=== PATIENT | female | born 1985 | race African-American/Black ===

== ENCOUNTER 2017-02-02 14:50 | Emergency (ER) | payer MEDICAID, OTHER ==
[~2017-02-02 14:50] MED LIST: Z.0.NO CURRENT MEDS
[2017-02-02 14:51] VITALS: BP 172/102; PULSE 93; RESP 22; TEMP 98.6; O2SAT 98
[2017-02-02] MEDS ORDERED: SODIUM CHLORIDE 0.9% FLUSH 10 ML FLUSH IVF PRN (16:00)
[2017-02-02 16:19] LABS: AUTOMATED NEUTROPHIL # 5.1 TH/MM3 (1.8-7.7); BASOPHIL # 0.1 TH/MM3 (0-0.2); BASOPHIL % 0.6 % (0.0-2.0); EOSINOPHIL # 0.1 TH/MM3 (0-0.4); EOSINOPHIL % 1.4 % (0.0-4.0); HEMATOCRIT 35.9 % (35.0-46.0); HEMO FLAGS DIFF FINAL; LYMPH % 32.3 % (9.0-44.0); LYMPHOCYTE # 2.9 TH/MM3 (1.0-4.8); MEAN CELL VOLUME 91.5 FL (80.0-100.0); MEAN CORPUSCULAR HEMOGLOBIN 30.8 PG (27.0-34.0); MEAN CORPUSCULAR HGB CONC 33.7 % (32.0-36.0); MONO % 8.1 % (0.0-8.0); NEUT % 57.6 % (16.0-70.0); PLATELET COUNT 291 TH/MM3 (150-450); RED BLOOD COUNT 3.92 MIL/MM3 (4.00-5.30); RED CELL DISTRIBUTION WIDTH 13.3 % (11.6-17.2); WHITE BLOOD COUNT 8.9 TH/MM3 (4.0-11.0)
--- NOTE | 2017-02-02 16:24 | PD ---
HPI Chief Complaint: [employer] Problem/Complaint Time Seen by Provider: 14:59 Travel History International Travel<30 days: No Contact w/Intl Traveler<30days: No Traveled to known affect area: No History of Present Illness HPI Patient is a 31-year-old female presenting to emergency department for evaluation of abnormal vaginal bleeding. Patient states it's been ongoing for the last 2 months, she will bleed for 2 days, it will return in a week later and she will bleed for 5-6 days and then it'll go away again. For the last 2 days she's had increased bleeding, she reports passing large clots and has some suprapubic tenderness. She denies any dysuria, shortness of breath, abdominal pain. She states that she does feel tired at times. Patient is not been evaluated for this prior to today. She reports a history of a tubal ligation and states prior to 2 months ago she has not had a period in 6 years. FOR[facility]LY [facility] Past Medical History Medical History: Denies Significant Hx Diminished Hearing: No ?: Not : 4 Para: 3 : 1 Tubal Ligation: Yes Past Surgical History Section: Yes (3) Cholecystectomy: Yes Other Surgery: Yes (3 C SECTIONS) Social History Alcohol Use: No Tobacco Use: No Substance Use: No Allergies-Medications (Allergen,Severity, Reaction): Coded Allergies: No Known Allergies (Verified , 06/07/11) Reported Meds & Prescriptions Reported Meds & Active Scripts Active Reported No Current Meds (Miscellaneous Medication) Misc Review of Systems Except as stated in HPI: all other systems reviewed are Neg Genitourinary: Positive: Pelvic Pain (CRAMPING), Vaginal Bleeding Physical Exam Narrative GENERAL: Obese, well-developed, alert female. Resting comfortably in no acute distress. SKIN: Warm and dry. HEAD: Atraumatic. Normocephalic. EYES: Pupils equal and round. No scleral icterus. No injection or drainage. ENT: No nasal bleeding or discharge. Mucous membranes pink and moist. NECK: Trachea midline. No JVD. CARDIOVASCULAR: Regular rate and rhythm. RESPIRATORY: No accessory muscle use. Clear to auscultation. Breath sounds equal bilaterally. GASTROINTESTINAL: Abdomen soft, mildly tender to palpation in suprapubic region , nondistended. Hepatic and splenic margins not palpable. Positive bowel sounds , no rebound, no guarding GENITOURINARY: Normal external genitalia without lesions or erythema. Vaginal vault with moderate amount of blood, small clots noted. Cervical os was closed. No cervical motion tenderness. Uterus nontender and nonenlarged. Bilateral adnexa nontender without masses. MUSCULOSKELETAL: Extremities without clubbing, cyanosis, or edema. No obvious deformities. NEUROLOGICAL: Awake and alert. No obvious cranial nerve deficits. Motor grossly within normal limits. Five out of 5 muscle strength in the arms and legs. Normal speech. PSYCHIATRIC: Appropriate mood and affect; insight and judgment normal. Data Data Last Documented VS Vital Signs Date Time Temp Pulse Resp B/P (MAP) Pulse Ox O2 Delivery O2 Flow Rate FiO2 02/02/17 17:53 02/02/17 15:16 16 02/02/17 14:51 98.6 93 98 Room Air Orders Orders Complete Blood Count With Diff (02/02/17 15:46) Comprehensive Metabolic Panel (02/02/17 15:46) Urinalysis - C+S If Indicated (02/02/17 15:46) Iv Access Insert/Monitor (02/02/17 15:46) Ecg Monitoring (02/02/17 15:46) Sodium Chloride 0.9% Flush (Ns Flush) (02/02/17 16:00) Urine Culture (02/02/17 15:40) Us Pelvis Comp W Doppler (02/02/17 ) Mandatory Outpatient Referral (02/02/17 17:50) Labs Laboratory Tests Test 02/02/17 15:40 White Blood Count 8.9 TH/MM3 Red Blood Count 3.92 MIL/MM3 Hemoglobin 12.1 GM/DL Hematocrit 35.9 % Mean Corpuscular Volume 91.5 FL Mean Corpuscular Hemoglobin 30.8 PG Mean Corpuscular Hemoglobin Concent 33.7 % Red Cell Distribution Width 13.3 % Platelet Count 291 TH/MM3 Mean Platelet Volume 7.7 FL Neutrophils (%) (Auto) 57.6 % Lymphocytes (%) (Auto) 32.3 % Monocytes (%) (Auto) 8.1 % Eosinophils (%) (Auto) 1.4 % Basophils (%) (Auto) 0.6 % Neutrophils # (Auto) 5.1 TH/MM3 Lymphocytes # (Auto) 2.9 TH/MM3 Monocytes # (Auto) 0.7 TH/MM3 Eosinophils # (Auto) 0.1 TH/MM3 Basophils # (Auto) 0.1 TH/MM3 CBC Comment DIFF FINAL Differential Comment Urine Color DARK-RED Urine Turbidity CLOUDY Urine pH 7.5 Urine Specific Mcleod 1.018 Urine Protein 100 mg/dL Urine Glucose (UA) NEG mg/dL Urine Ketones NEG mg/dL Urine Occult Blood LARGE Urine Nitrite NEG Urine Bilirubin NEG Urine Urobilinogen 2.0 MG/DL Urine Leukocyte Esterase MOD Urine RBC /hpf Urine WBC /hpf Urine Squamous Epithelial Cells 4 /hpf Urine Mucus FEW /lpf Microscopic Urinalysis Comment CULTURE INDICATED Blood Urea Nitrogen 10 MG/DL Creatinine 0.90 MG/DL Random Glucose 100 MG/DL Total Protein 7.5 GM/DL Albumin 3.3 GM/DL Calcium Level 8.6 MG/DL Alkaline Phosphatase 89 U/L Aspartate Amino Transf (AST/SGOT) 12 U/L Alanine Aminotransferase (ALT/SGPT) 15 U/L Total Bilirubin 0.6 MG/DL Sodium Level 140 MEQ/L Potassium Level 3.7 MEQ/L Chloride Level 107 MEQ/L Carbon Dioxide Level 25.4 MEQ/L Anion Gap 8 MEQ/L Estimat Glomerular Filtration Rate 88 ML/MIN MDM Medical Decision Making Medical Screen Exam Complete: Yes Emergency Medical Condition: Yes Interpretation(s) Last Impressions Pelvis Ultrasound 02/02/17 0000 Signed Impressions: Service Date/Time: Thursday, February 02, 2017 16:50 - CONCLUSION: Pelvic ultrasound within normal limits. Oc James MD Laboratory Tests Test 02/02/17 15:40 White Blood Count 8.9 TH/MM3 Red Blood Count 3.92 MIL/MM3 Hemoglobin 12.1 GM/DL Hematocrit 35.9 % Mean Corpuscular Volume 91.5 FL Mean Corpuscular Hemoglobin 30.8 PG Mean Corpuscular Hemoglobin Concent 33.7 % Red Cell Distribution Width 13.3 % Platelet Count 291 TH/MM3 Mean Platelet Volume 7.7 FL Neutrophils (%) (Auto) 57.6 % Lymphocytes (%) (Auto) 32.3 % Monocytes (%) (Auto) 8.1 % Eosinophils (%) (Auto) 1.4 % Basophils (%) (Auto) 0.6 % Neutrophils # (Auto) 5.1 TH/MM3 Lymphocytes # (Auto) 2.9 TH/MM3 Monocytes # (Auto) 0.7 TH/MM3 Eosinophils # (Auto) 0.1 TH/MM3 Basophils # (Auto) 0.1 TH/MM3 CBC Comment DIFF FINAL Differential Comment Urine Color DARK-RED Urine Turbidity CLOUDY Urine pH 7.5 Urine Specific Mcleod 1.018 Urine Protein 100 mg/dL Urine Glucose (UA) NEG mg/dL Urine Ketones NEG mg/dL Urine Occult Blood LARGE Urine Nitrite NEG Urine Bilirubin NEG Urine Urobilinogen 2.0 MG/DL Urine Leukocyte Esterase MOD Urine RBC /hpf Urine WBC /hpf Urine Squamous Epithelial Cells 4 /hpf Urine Mucus FEW /lpf Microscopic Urinalysis Comment CULTURE INDICATED Blood Urea Nitrogen 10 MG/DL Creatinine 0.90 MG/DL Random Glucose 100 MG/DL Total Protein 7.5 GM/DL Albumin 3.3 GM/DL Calcium Level 8.6 MG/DL Alkaline Phosphatase 89 U/L Aspartate Amino Transf (AST/SGOT) 12 U/L Alanine Aminotransferase (ALT/SGPT) 15 U/L Total Bilirubin 0.6 MG/DL Sodium Level 140 MEQ/L Potassium Level 3.7 MEQ/L Chloride Level 107 MEQ/L Carbon Dioxide Level 25.4 MEQ/L Anion Gap 8 MEQ/L Estimat Glomerular Filtration Rate 88 ML/MIN Vital Signs Date Time Temp Pulse Resp B/P (MAP) Pulse Ox O2 Delivery O2 Flow Rate FiO2 02/02/17 15:16 16 02/02/17 14:51 98.6 93 22 172/102 (125) 98 Room Air Differential Diagnosis Anemia versus mass versus menorrhagia versus other Narrative Course Patient is a 31-year-old female presenting for evaluation of abnormal vaginal bleeding which has increased over the last 48 hours. Patient's vital signs are stable, she is afebrile. Labs and imaging ordered and pending. Pelvic exam with large amount of blood and small clots in the vault. CBC, chemistry, urinalysis reviewed, no acute findings identified. There is a reflux culture pending on the urinalysis however patient denies any urinary complaints. We'll defer treatment until culture results. Pelvic ultrasound read by radiologist is within normal limits. Patient was reassured that there were no acute findings at this time. A mandatory referral was made to follow-up with a client care specialist. Patient was encouraged to establish care with a primary doctor as well. Patient was encouraged to return to emergency department for any new or worsening symptoms. She verbalized understanding of these instructions. Patient is stable for discharge. Diagnosis Primary Impression: Dysfunctional uterine bleeding Referrals: Integration Lead 1 week Patient Instructions: Dysfunctional Uterine Bleeding (ED), General Instructions Additional Instructions: Follow-up with client care specialist Return to emergency department for any new or worsening symptoms A referral to a client care specialist has been made for you, you will be contacted by the hospital regarding the next appointment Med/Other Pt SpecificInfo: No Change to Meds Disposition: 01 DISCHARGE HOME Condition: Stable Vanessa Torres Feb 02, 2017 16:24
[2017-02-02 16:36] LABS: ALT (GPT) 15 U/L (10-53); ANION GAP 8 MEQ/L (5-15); AST (GOT) 12 U/L (15-37); BICARBONATE 25.4 MEQ/L (21.0-32.0); BLOOD UREA NITROGEN 10 MG/DL (7-18); CHLORIDE 107 MEQ/L (98-107); GLOMERULAR FILTRATION RATE 88 ML/MIN (>89); POTASSIUM 3.7 MEQ/L (3.5-5.1); SODIUM (NA) 140 MEQ/L (136-145)
[2017-02-02 16:38] LABS: ALKALINE PHOSPHATASE 89 U/L (45-117); TOTAL BILIRUBIN ADULT 0.6 MG/DL (0.2-1.0)
[2017-02-02 17:08] LABS: BLOOD, URINE LARGE (NEG); GLUCOSE,URINE NEG (NEG); KETONE, URINE NEG (NEG); MUCUS URINE FEW /lpf (OCC); NITRITE,URINE NEG (NEG); PH, URINE 7.5 (5.0-8.5); SQUAMOUS EPITHELIAL CELL URINE 4 /hpf (0-5)
[2017-02-02 17:09] LABS: COMMENT (UR) CULTURE INDICATED; CULTURE IF INDICATED CULTURE INDICATED; URINE COLOR DARK-RED (YELLW/STRAW)
--- NOTE | 2017-02-02 17:44 | RADRPT ---
EXAM DATE/TIME: 02/02/2017 16:50 [facility] COMPARISON: No previous studies available for comparison. INDICATIONS : Abnormal vaginal bleeding. MEDICAL HISTORY : Vaginal bleeding for two months. SURGICAL HISTORY : Cholecystectomy. section. Tubal ligation. ENCOUNTER: Initial ACUITY: 1 month PAIN SCORE: 8/10 LOCATION: Bilateral pelvis MEASUREMENTS: UTERUS: 13.9 x 5.9 x 5.4 cm ENDOMETRIAL STRIPE: 6 mm RIGHT OVARY: 2.6 x 2.7 x 2.1 cm LEFT OVARY: 1.9 x 1.7 x 2.0 cm FINDINGS: UTERUS: The myometrium has homogeneous echotexture without mass. RIGHT OVARY: Ovary contains no mass or significant cystic lesion. LEFT OVARY: Ovary contains no mass or significant cystic lesion. MISCELLANEOUS: No free fluid. CONCLUSION: Pelvic ultrasound within normal limits. Oc James MD on February 02, 2017 at 17:42 Board Certified Radiologist. This report was verified electronically.
== END 2017-02-02 18:00 | disposition home or self-care (01) ==
LOC: NEPC 14:50
DX: N93.8 Other specified abnormal uterine and vaginal bleeding (principal); A49.8 Other bacterial infections of unspecified site; R10.2 Pelvic and perineal pain
CPT/HCPCS: 76856; 80053; 81001; 85025; 87086; 93975; 99284